=== PATIENT | male | born 1965 | race African-American/Black ===

== ENCOUNTER 2020-08-25 18:05 | Inpatient (IN) | payer OTHER, SELFPAY ==
[2020-08-25] MEDS ORDERED: Milk Of Magnesia 30 ML UDCUP ONE (18:28)
[2020-08-25] MEDS ORDERED: Nitroglycerin 2% Ointment 1 INCH/1 GM Packet ONE (18:28)
[2020-08-25] MEDS ORDERED: Lidocaine Viscous Sol 2% 15 ml UD Cup ONE (18:28)
[2020-08-25 18:34] LABS: #Eosinphils 0.5 thou/uL (0.0-0.7); #Lymphocytes 2.5 thou/uL (1.20-3.40); #Monocytes 0.4 thou/uL (0.11-0.59); #Neutrophils 2.6 thou/uL (1.40-6.50); %Basophils 0.4 % (0.0-1.0); %Eosinophils 8.4 % (0.0-10.0); %Lymphocytes 41.5 % (21.0-51.0); %Monocytes 7.2 % (0.0-10.0); %Neutrophils 42.4 % (42.0-75.0); Hemoglobin 14.4 g/dL (14.0-18.0); Mean Corpuscular HGB CONC 34.6 g/dL (32.0-36.0); Mean Corpuscular Hemoglobin 32.4 pg (27.0-31.0); Mean Corpuscular Volume 93.8 fL (78.0-98.0); Mean Platelet Volume 8.3 fL (7.4-10.4); Platelet Count 247 thou/uL (130-400); Red Blood Cell (RBC) Count 4.44 mill/uL (4.70-6.10)
--- NOTE | 2020-08-25 18:37 | RAD ---
Portable frontal chest radiograph: 08/25/2020 COMPARISON: None HISTORY: Burning chest pain FINDINGS: Lungs are clear. Heart and mediastinal contours appear within normal limits. IMPRESSION: No acute findings.
[2020-08-25 18:54] LABS: ALT (SGPT) 25 U/L (8-55); AST (SGOT) 24 U/L (5-34); Albumin 4.3 g/dL (3.5-5.0); Alkaline Phosphatase 95 U/L (40-110); Anion Gap 13 mmol/L (10-20); BUN (Urea Nitrogen) 9 mg/dL (8.4-25.7); Bilirubin, Total 0.4 mg/dL (0.2-1.2); CK (CPK) 537 U/L (30-200); Calc. Creatinine Clearance 0 mL/min (70-130); Calcium 9.4 mg/dL (7.8-10.44); Carbon Dioxide 29 mmol/L (22-29); Chloride 102 mmol/L (98-107); Estimated GFR-MDRD 61; Globulin 3.4 g/dL (2.4-3.5); Glucose 115 mg/dL (70-105); Lipase 17 U/L (8-78); Potassium 4.2 mmol/L (3.5-5.1); Protein, Total 7.7 g/dL (6.0-8.3); Sodium 140 mmol/L (136-145)
[2020-08-25 19:13] LABS: CKMB 2.4 ng/mL (0-6.6)
[2020-08-25] MEDS ORDERED: Nitroglycerin 0.4 MG TAB (25 Tab Bottle) SL PRN (20:26)
--- NOTE | 2020-08-25 20:35 | PDOC.HHP ---
Hospitalist HPI - History of Present Illness Chest pain History of Present Illness: 55-year-old -[place] gentleman with a history of hypertension, ongoing tobacco use and hypothyroidism presented emergency department with a complaint of intermittent chest pain which has been occurring for about 1 week. Patient reports progressive worsening and increasing frequency of his chest pain. He rated his chest pain today at 10/10. Pain located in the anterior chest, nonradiating, worse with exertion and movement, described as burning and tightness, relieved by transdermal nitroglycerin and GI cocktail in the emergency department. Patient was initially quite hypertensive with systolic blood pressure in the 180s. His initial troponin in the ED is borderline elevated. EKG demonstrated left anterior fascicular hemiblock and nondiagnostic for acute ischemia. Checks x-ray unremarkable and shows no acute infiltrate. Patient's cardiac risk factors include age sex hypertension ongoing tobacco use. Given his significant cardiac risk factors, patient is diagnosed with NSTEMI and hospitalized for further management. Hospitalist ROS - Review of Systems Other: He denied any shortness of breath or palpitation. He denied any abdominal pain. Except as documented, all other systems reviewed and negative. - Medication Medications: Medication Instructions Recorded Confirmed Type Amlodipine Besylate/Valsartan 10 - 320 mg PO DAILY 08/26/20 08/26/20 History [Amlodipine-Valsartan 5-160 mg] Escitalopram Oxalate 1 tab PO DAILY 08/26/20 08/26/20 History Levothyroxine Sodium [Synthroid] 1 tab PO DAILY 08/26/20 08/26/20 History busPIRone HCl 1 tab PO BID 08/26/20 08/26/20 History Hospitalist History - Past Medical History Cardiac: reports: HTN Psych: reports: Anxiety Endocrine: reports: Hypothyroidism - Family History Family History: reports: diabetes mellitus (Mother.) - Social History Smoking Status: Current every day smoker Alcohol: reports: Occassional Drugs: reports: none - Exam General Appearance: NAD, awake alert Eye: PERRL, anicteric sclera ENT: normocephalic atraumatic, no oropharyngeal lesions, moist mucosa Neck: supple, symmetric, no JVD, no thyromegaly Heart: RRR, no murmur, no gallops Respiratory: CTAB, no wheezes, no rales, no ronchi Gastrointestinal: soft, non-tender, non-distended, normal bowel sounds Extremities: no cyanosis, no edema Skin: normal turgor, no rashes Neurological: cranial nerve grossly intact, no weakness, no focal deficits Musculoskeletal: normal tone, normal strength Psychiatric: normal affect, normal behavior, A&O x 3 Hospitalist Results - Labs Result Diagrams: 08/26/20 05:01 08/26/20 05:01 Lab results: WBC 6.0 thou/uL (4.8-10.8) 08/25/20 18:20 Hgb 14.4 g/dL (14.0-18.0) 08/25/20 18:20 Hct 41.7 % (42.0-52.0) L 08/25/20 18:20 MCV 93.8 fL (78.0-98.0) 08/25/20 18:20 Plt Count 247 thou/uL (130-400) 08/25/20 18:20 Neutrophils % 42.4 % (42.0-75.0) 08/25/20 18:20 Sodium 140 mmol/L (136-145) 08/25/20 18:20 Potassium 4.2 mmol/L (3.5-5.1) 08/25/20 18:20 Chloride 102 mmol/L (98-107) 08/25/20 18:20 Carbon Dioxide 29 mmol/L (22-29) 08/25/20 18:20 BUN 9 mg/dL (8.4-25.7) 08/25/20 18:20 Creatinine 1.23 mg/dL (0.7-1.3) 08/25/20 18:20 Glucose 115 mg/dL (70-105) H 08/25/20 18:20 Calcium 9.4 mg/dL (7.8-10.44) 08/25/20 18:20 Total Bilirubin 0.4 mg/dL (0.2-1.2) 08/25/20 18:20 AST 24 U/L (5-34) 08/25/20 18:20 ALT 25 U/L (8-55) 08/25/20 18:20 Alkaline Phosphatase 95 U/L (40-110) 08/25/20 18:20 Creatine Kinase 537 U/L (30-200) H 08/25/20 18:20 CK-MB (CK-2) 2.4 ng/mL (0-6.6) 08/25/20 18:20 Troponin I 0.047 ng/mL (< 0.028) H 08/25/20 18:20 Serum Total Protein 7.7 g/dL (6.0-8.3) 08/25/20 18:20 Albumin 4.3 g/dL (3.5-5.0) 08/25/20 18:20 Lipase 17 U/L (8-78) 08/25/20 18:20 Troponin is 0.047. - Radiology Interpretation Chest x-ray Status: report reviewed by me (No acute findings.) Hospitalist H&P A/P - Problem (1) NSTEMI (non-ST elevated myocardial infarction) Code(s): I21.4 - NON-ST ELEVATION (NSTEMI) MYOCARDIAL INFARCTION Status: Acute (2) Hypertension Code(s): I10 - ESSENTIAL (PRIMARY) HYPERTENSION Status: Acute (3) Hypothyroidism Code(s): E03.9 - HYPOTHYROIDISM, UNSPECIFIED Status: Acute - Plan Plan: Placed under observation. Continue to trend troponin. Patient given full dose Lovenox. Full dose Lovenox Per Cardiology. Aspirin 325 mg daily. Added metoprolol 25 mg twice daily given patient is hypertensive. Check lipid profile Check echocardiogram Cardiology consult. IV morphine as needed for pain Nitroglycerin paste applied.
[2020-08-25] MEDS ORDERED: Morphine 2 MG/ML VIAL SLOW IVP PRN (20:41)
[2020-08-25] MEDS ORDERED: Metoprolol Tartrate 25 MG TAB PO SCH ×2 (21:00)
[2020-08-25 21:50] LABS: Troponin I 0.117 ng/mL (< 0.028)
[2020-08-25 22:37] VITALS: BMI 29.4
[2020-08-25] MEDS ORDERED: Enoxaparin Sodium 100 MG/ML SYRINGE SC SCH (23:00)
[2020-08-25] MEDS: Nitroglycerin 2% Ointment 1 INCH/1 GM Packet TOP SCH (23:12)
[2020-08-26 01:31] LABS: Troponin I 0.511 ng/mL (< 0.028)
[2020-08-26 05:09] LABS: #Basophils 0.1 thou/uL (0.0-0.2); #Eosinphils 0.2 thou/uL (0.0-0.7); #Lymphocytes 1.5 thou/uL (1.20-3.40); #Monocytes 0.3 thou/uL (0.11-0.59); #Neutrophils 5.5 thou/uL (1.40-6.50); %Basophils 0.7 % (0.0-1.0); %Lymphocytes 20.1 % (21.0-51.0); %Monocytes 3.9 % (0.0-10.0); %Neutrophils 72.3 % (42.0-75.0); Mean Corpuscular HGB CONC 32.4 g/dL (32.0-36.0); Mean Corpuscular Hemoglobin 30.5 pg (27.0-31.0); Mean Corpuscular Volume 94.2 fL (78.0-98.0); Mean Platelet Volume 8.3 fL (7.4-10.4); Platelet Count 246 thou/uL (130-400); RBC Distribution Width 14.2 % (11.5-14.5); Red Blood Cell (RBC) Count 4.26 mill/uL (4.70-6.10); White Blood Cell (WBC) Count 7.5 thou/uL (4.8-10.8)
[2020-08-26 05:39] LABS: Anion Gap 12 mmol/L (10-20); BUN (Urea Nitrogen) 11 mg/dL (8.4-25.7); Calc. Creatinine Clearance 107 mL/min (70-130); Calcium 8.9 mg/dL (7.8-10.44); Carbon Dioxide 26 mmol/L (22-29); Cardiac Risk 3.7 (Less than 4.5); Chloride 105 mmol/L (98-107); Cholesterol 154 mg/dl (< 200 Desired); Estimated GFR-MDRD 82; Glucose 151 mg/dL (70-105); HDL Cholesterol 42 mg/dL (>60 Neg Risk); LDL Cholesterol, Calculated 88 mg/dL; Sodium 139 mmol/L (136-145); Triglycerides 120 mg/dL (Less than 150)
[2020-08-26] MEDS: Nitroglycerin 2% Ointment 1 INCH/1 GM Packet TOP SCH (05:46)
[2020-08-26] MEDS ORDERED: Levothyroxine Sodium 112 MCG TAB PO SCH ×2 (09:00)
[2020-08-26] MEDS ORDERED: FLU VACC QS2020-21(6MOS UP)/PF 60 MCG/0.5 ML SYRINGE IM ONE (09:00)
[2020-08-26] MEDS ORDERED: Enoxaparin Sodium 100 MG/ML SYRINGE SC SCH (09:00)
[2020-08-26] MEDS ORDERED: Clopidogrel Bisulfate 75 MG TAB PO SCH (09:00)
[2020-08-26] MEDS ORDERED: Aspirin 325 mg Enteric Coated Tablet PO SCH (09:00)
[2020-08-26] MEDS ORDERED: busPIRone HCl 5 MG TAB PO SCH ×2 (09:00)
[2020-08-26] MEDS ORDERED: Clopidogrel Bisulfate 300 MG TAB PO SCH (09:00)
[2020-08-26] MEDS ORDERED: Escitalopram Oxalate 20 mg Tablet PO SCH ×2 (09:00)
[2020-08-26] MEDS ORDERED: Amlodipine 5 MG TAB PO SCH (09:00)
[2020-08-26] MEDS ORDERED: Rosuvastatin 20 MG TAB PO SCH (09:00)
--- NOTE | 2020-08-26 09:23 | CON ---
DATE OF CONSULTATION: 08/26/2020 REASON FOR CONSULTATION: [id number] myocardial infarction. HISTORY OF PRESENT ILLNESS: Mr. Cortes is a 55-year-old man. The patient has been having chest discomfort for 2 to 3 weeks. Last night, it became severe. The patient's pain is in the middle of his chest, goes across his chest. As mentioned, it has been present for 2 to 3 weeks. 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 Last night, the pain became intense, 10 out of a scale of 10. He received nitrates, aspirin, and enoxaparin. The pain resolved. The patient is pain free this morning, but he has deep T-wave inversions in the inferior leads and a troponin of 0.5. Up until a few weeks ago, he has never had pain like this. SOCIAL HISTORY: Does have a history of smoking, he says he has tried to reduce. REVIEW OF SYSTEMS: CONSTITUTIONAL: No significant weight gain or loss. VISION: No changes. HEARING: No changes. PULMONARY: No cough or wheezing. GASTROINTESTINAL: No nausea, vomiting, or diarrhea. SKIN: No rashes. NEUROLOGIC: No unilateral weakness or numbness. PSYCHIATRIC: No unusual depression or anxiety. HEMATOLOGIC: No unusual bruising. GENITOURINARY: No burning with urination. PHYSICAL EXAMINATION: GENERAL: This is a 55-year-old man. He is 6 feet 1 inch tall, 223 pounds. Awake and alert. VITAL SIGNS: Blood pressure is 133/65; pulse is 50, sometimes in the 40s, sinus bradycardia. He received some beta blockers last night. LUNGS: Clear. CARDIAC: Normal S1, normal S2, but he is bradycardic. ABDOMEN: Soft and nontender. EXTREMITIES: Warm and dry. No clubbing. No cyanosis or edema. PERTINENT LABORATORY DATA: Hemoglobin is 13. Glucose 151 this morning. Total cholesterol is 154, triglyceride 120, LDL is 88, HDL is 42. EKG this morning, sinus bradycardia. There is deep T-wave inversion in leads II, III, and aVF. T-wave inversion in V4 through V6. EKG last night, sinus bradycardia with sinus arrhythmia, possible old anterior infarct. ASSESSMENT: 1. Status post [id number] myocardial infarction with T-wave inversions in the inferior leads. 2. History of smoking. 3. History of hypertension. 4. Probably, has either glucose intolerance or diabetes with a blood sugar being 151 this morning. PLAN: 1. Aspirin. 2. Continue Lovenox. 3. Stop beta blockers in view of bradycardia. 4. Resume amlodipine. 5. Recommend cardiac catheterization be done. Explained the risks of the procedure, stroke, heart attack, iodine allergy, loss of blood supply to leg or kidney, stent thrombosis, stent restenosis. I advised the patient to stay here, continue anticoagulation and proceed tomorrow morning. At the present time, the patient refuses, states he has things he has to take care of. Explained to him that he is at risk of having adverse outcome including myocardial infarction, permanent muscle damage, or even . At the present time, the patient indicates that he will still leave against advice, awaiting the patient's decision presently. We will go ahead and give him Lovenox this morning, aspirin. If he goes against advice, we will have to have him go back to the emergency room for recurrent chest pain. I have spent a lot of time explaining to this patient that I STRONGLY ADVISE THAT HE STAY IN THE HOSPITAL, BUT AT THIS TIME THE PATIENT INDICATES HE WILL NOT. ADDENDUM: I went back in the room and discussed with Mr. Cortes again and again advised him to stay in the hospital. He has decided to leave against medical advice. Therefore, we will go ahead and give him Plavix 300 mg now, then 75 mg a day. The patient states he will return to the emergency room if he has recurrent chest pain. Again, I strongly advised him to stay in the hospital. Job ID: [id number]
[2020-08-26 09:28] VITALS: BP 129/70; TEMP 98.2
[2020-08-26 12:40] LABS: SARS-CoV-2 MS2 Positive; SARS-CoV-2 N Gene Negative; SARS-CoV-2 S Gene Negative; SARS-CoV-2 by NAA Not Detected (NotDetected); SARS-CoV-2 orf1ab Negative
--- NOTE | 2020-08-26 13:20 | DIS ---
DATE OF ADMISSION: 08/26/2020 DATE OF DISCHARGE: 08/26/2020 DISCHARGE DISPOSITION: The patient signed out against medical advice. PRIMARY DISCHARGE DIAGNOSES: 1. [id number] myocardial infarction. 2. Hypertension. 3. Tobacco abuse. PROCEDURES DONE DURING HOSPITALIZATION: Chest x-ray done showed no acute findings. H and H 13 and 40, platelet count 246. Troponin-I peaking up to 0.51, CK-MB 2.4. Total cholesterol 154, LDL 88, triglycerides 120, and HDL 42. Lipase 17. BUN 9, creatinine 1.23. Liver enzymes within normal limits. COVID-19 PCR was not detected on 08/25/2020. DISCHARGE MEDICATIONS: 1. Plavix 75 mg p.o. daily. 2. Lipitor 20 mg p.o. daily. 3. Synthroid 112 mcg p.o. daily. 4. Escitalopram 20 mg p.o. daily. 5. Buspirone 5 mg twice daily. 6. Amlodipine with valsartan 10/320 mg p.o. daily. ALLERGIES: NO KNOWN DRUG ALLERGIES. DISCHARGE PLAN: The patient to follow up with his primary care physician in [place] this week and to have outpatient cardiology appointment at the earliest. BRIEF COURSE DURING HOSPITALIZATION: The patient initially came in with complaints of shortness of breath and chest pain. The pain was 10/10 in intensity. His EKG was suspicious for ischemia. The patient had indeterminate troponin as well. He was essentially kept n.p.o. and admitted to telemetry. He was placed on full-dose Lovenox along with aspirin. Dr. Adhikari, underwriting sales representative, evaluated the patient this morning and was planning on doing a cardiac catheterization, but the patient has refused the same. 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 He did not want to stay. He finally signed out against medical advice. Please note, I have seen and examined the patient on the day of discharge. Job ID: [id number]
--- NOTE | 2020-08-31 13:23 | EKG ---
Test Reason : Blood Pressure : / mmHG Vent. Rate : 053 BPM Atrial Rate : 053 BPM P-R Int : 166 ms QRS Dur : 098 ms QT Int : 462 ms P-R-T Axes : 070 -60 -56 degrees QTc Int : 433 ms Sinus bradycardia with sinus arrhythmia Left anterior fascicular block Minimal voltage criteria for LVH, may be normal variant T wave abnormality, consider inferolateral ischemia Abnormal ECG When compared with ECG of 25-AUG-2020 18:11, (Unconfirmed) Criteria for Anterior infarct are no longer Present T wave inversion now evident in Inferior leads T wave inversion now evident in Anterolateral leads Confirmed by DR. Cam PACKER ([id number]) on 08/31/2020 1:23:13 PM Referred By: ESTELA Confirmed By:DR. Cam PACKER
--- NOTE | 2020-09-15 16:39 | EKG ---
Test Reason : Blood Pressure : / mmHG Vent. Rate : 059 BPM Atrial Rate : 059 BPM P-R Int : 168 ms QRS Dur : 100 ms QT Int : 414 ms P-R-T Axes : 056 -58 024 degrees QTc Int : 409 ms Sinus bradycardia with marked sinus arrhythmia Left anterior fascicular block Anterior infarct , age undetermined Abnormal ECG Confirmed by CYNTHIA CHANG, RACHID ([id number]), features editor NICK [place] ([id number]) on 09/15/2020 4:39:34 PM Referred By: Confirmed By:RACHID MARIE MD
== END 2020-08-26 09:45 | disposition left against medical advice (07) | DRG 282 ==
LOC: ERS 18:05 → 2SE 20:00 → OBSVTOIN 08-26 06:53
PROVIDERS: ADMIT Internal Medicine; ATTEND Internal Medicine
DX: I21.4 Non-ST elevation (NSTEMI) myocardial infarction (principal); I10 Essential (primary) hypertension; F17.210 Nicotine dependence, cigarettes, uncomplicated; E03.9 Hypothyroidism, unspecified; F41.9 Anxiety disorder, unspecified; Z79.899 Other long term (current) drug therapy; Z20.828 Contact with and (suspected) exposure to other viral communicable diseases
CPT/HCPCS: 36415; 71045; 80048; 80053; 80061; 82550; 82553; 83690; 84484; 85025; 87635; 93005; 93010; 94760; 96372; G0378; J1650; U0003